=== PATIENT | female | born 1995 | race Caucasian/White ===

== ENCOUNTER 2024-08-10 20:26 | Inpatient (IN) | payer MEDICARE, OTHER ==
[~2024-08-10] VITALS: Ht 149.9 cm; Wt 99.8 kg
[~2024-08-10 20:26] MED LIST: ALBU18HF12 IH; ATOR10TA PO; BUDE10.27 IH; CABE0.5T2 PO; CYAN100096 IM; DIVA-153 PO; FERR-82 PO; FLUT16SP NASAL; HALO5VIA16 IM; LACO50TA16 PO; MONT-35 PO; OMEP20 PO; RISP4TAB31 PO
[2024-08-10 23:01] VITALS: BP 119/80; PULSE 92; RESP 17; TEMP 98.4; O2SAT 96
[2024-08-11 04:58] VITALS: BP 139/83; PULSE 100; RESP 18; TEMP 97.3; O2SAT 97
[2024-08-11 08:29] VITALS: BP 109/71; PULSE 79; RESP 17; TEMP 96.8; O2SAT 98
[2024-08-11] MEDS ORDERED: MAGNESIUM HYDROXIDE SUSPENSION 30 ML UDCUP PO PRN (09:45)
[2024-08-11] MEDS ORDERED: CloNIDine HCL 0.1 MG TABLET PO PRN (09:45)
[2024-08-11] MEDS ORDERED: LOPERAMIDE HCL 2 MG CAPSULE PO PRN (09:45)
[2024-08-11] MEDS ORDERED: PETROLATUM,WHITE 28 GM JELLY TP PRN (09:45)
[2024-08-11] MEDS ORDERED: ONDANSETRON 4 MG TABLET PO PRN (09:45)
[2024-08-11] MEDS ORDERED: DOCUSATE SODIUM 100 MG CAPSULE PO PRN (09:45)
[2024-08-11] MEDS ORDERED: MAG HYDROX/ALUMINUM HYD/SIMETH ES 30 ML SUSPENSION UDCUP PO PRN (09:45)
[2024-08-11] MEDS ORDERED: GuaiFENesin/D-METHORPHAN [SUGAR-FREE] 200-20MG/10 ML SYRUP UDCUP PO PRN (09:45)
[2024-08-11] MEDS ORDERED: NICOTINE 14 MG/24 HOUR PATCH TD PRN (09:45)
[2024-08-11] MEDS ORDERED: ACETAMINOPHEN 325 MG TABLET PO PRN (09:45)
[2024-08-11] MEDS ORDERED: IBUPROFEN 400 MG TABLET PO PRN (09:45)
[2024-08-11] MEDS: RisperiDONE 4 MG TABLET PO SCH (10:52)
[2024-08-11] MEDS: DIVALPROEX SODIUM 500 MG ER TABLET PO SCH (12:16)
[2024-08-11] MEDS: ALBUTEROL SULFATE HFA 90 MCG/PUFF 8 GM INHALER IH PRN (14:02)
[2024-08-11] MEDS: ZOLPIDEM TARTRATE 10 MG TABLET PO PRN (21:01)
[2024-08-11 23:43] VITALS: BP 112/68; PULSE 65; RESP 18; TEMP 97.4; O2SAT 98
[2024-08-12] MEDS: FERROUS SULFATE 325 MG EC TABLET PO SCH (06:22)
[2024-08-12 08:14] VITALS: BP 118/73; PULSE 74; RESP 16; TEMP 96.9; O2SAT 98
[2024-08-12] MEDS: ATORVASTATIN CALCIUM 10 MG TABLET PO SCH (08:21)
[2024-08-12] MEDS: LACOSAMIDE 50 MG TABLET PO SCH (08:21)
[2024-08-12] MEDS: MONTELUKAST SODIUM 10 MG TABLET PO SCH (08:22)
[2024-08-12] MEDS: FLUTICASONE PROPIONATE 50 MCG/SPRAY 16 GM NASAL SPRAY NASAL SCH (08:23)
[2024-08-12 09:02] LABS: HEMOGLOBIN A1C 5.6 % (3.8-5.6)
[2024-08-12 09:19] LABS: THYROID STIMULATING HORMONE 4.31 uIU/mL (0.36-3.74)
[2024-08-12] MEDS: LORazepam 2 MG TABLET PO PRN (15:01)
[2024-08-12] MEDS: HALOPERIDOL 5 MG TABLET PO PRN (15:01)
[2024-08-12 20:49] VITALS: BP 125/82; PULSE 92; RESP 17; TEMP 97.6; O2SAT 98
[2024-08-13 08:15] VITALS: BP 113/72; PULSE 74; RESP 16; TEMP 97.6; O2SAT 98
[2024-08-13 21:26] VITALS: BP 110/70; PULSE 82; RESP 16; TEMP 97.4; O2SAT 97
[2024-08-14 08:42] VITALS: BP 122/81; PULSE 79; RESP 16; TEMP 98.2; O2SAT 96
[2024-08-14] MEDS: INFLUENZA VIRUS VACCINE TVS (6MO+) 2024-25/PF 45 MCG/0.5 ML SYRINGE IM. ONE (15:42)
[2024-08-14] MEDS: PNEUMOCOCCAL VACCINE POLYVALENT 0.5 ML SYRINGE [PPSV23] IM. ONE (16:00)
[2024-08-14 20:12] VITALS: BP 103/60; PULSE 87; RESP 18; TEMP 97.5; O2SAT 97
[2024-08-15 08:14] VITALS: BP 114/60; PULSE 74; RESP 17; TEMP 96.8; O2SAT 96
[2024-08-15 20:14] VITALS: BP 103/60; PULSE 85; RESP 17; TEMP 97.6; O2SAT 95
[2024-08-16 08:35] VITALS: BP 128/79; PULSE 83; RESP 16; TEMP 97.9; O2SAT 96
[2024-08-16 20:36] VITALS: BP 146/59; PULSE 88; RESP 17; TEMP 97.8; O2SAT 98
[2024-08-17 08:13] VITALS: RESP 16
[2024-08-17] MEDS ORDERED: MONT-35 PO (11:01)
[2024-08-17] MEDS ORDERED: LACO50TA16 PO (11:01)
[2024-08-17] MEDS ORDERED: RISP4TAB94 PO (11:01)
[2024-08-17] MEDS ORDERED: FERR325T27 PO (11:01)
[2024-08-17] MEDS ORDERED: ATOR10TA69 PO (11:01)
[2024-08-17] MEDS ORDERED: DIVA-153 PO (11:01)
== END 2024-08-17 12:48 | disposition home or self-care (01) | DRG 885 ==
LOC: B3A 22:07
PROVIDERS: ADMIT Psychiatry & Neurology Psychiatry; ATTEND Psychiatry & Neurology Psychiatry
PROC: GZHZZZZ Group Psychotherapy (ICD-10-PCS; principal; 2024-08-11)
PROC: GZ52ZZZ Individual Psychotherapy, Cognitive (ICD-10-PCS; 2024-08-11)
DX: F25.0 Schizoaffective disorder, bipolar type (principal); J44.89 Other specified chronic obstructive pulmonary disease; F79 Unspecified intellectual disabilities; Z68.41 Body mass index [BMI] 40.0-44.9, adult; K21.9 Gastro-esophageal reflux disease without esophagitis; E78.5 Hyperlipidemia, unspecified; D64.9 Anemia, unspecified; E66.01 Morbid (severe) obesity due to excess calories; G47.30 Sleep apnea, unspecified; Z79.899 Other long term (current) drug therapy; Z81.8 Family history of other mental and behavioral disorders; Z88.1 Allergy status to other antibiotic agents; Z88.2 Allergy status to sulfonamides; Z91.51 Personal history of suicidal behavior
CPT/HCPCS: 80061; 83036; 84443; 90686; 90732; J3535

== ENCOUNTER 2024-08-10 22:07 | Emergency (ER) | payer MEDICARE, OTHER ==
[~2024-08-10] VITALS: Ht 167.6 cm; Wt 80.0 kg
[2024-08-10 22:11] VITALS: TEMP 98
[2024-08-10 23:21] LABS: BASOPHILS % (AUTO) 1.4 % (0.0-2.0); EOSINOPHILS % (AUTO) 0.5 % (1.0-6.0); HEMATOCRIT 35.4 % (36-46); HEMOGLOBIN 11.7 g/dL (12.0-16.0); LYMPHOCYTES % (AUTO) 27.5 % (22.0-44.0); MEAN CORPUSCULAR HEMOGLOBIN 29.5 pg (26.0-34.0); MEAN CORPUSCULAR VOLUME 89 fL (80-100); MONOCYTES # (AUTO) 0.6 K/uL (0.1-1.0); MONOCYTES % (AUTO) 7.8 % (2.0-9.0); NEUTROPHILS # (AUTO) 4.6 K/uL (1.8-7.7); NEUTROPHILS % (AUTO) 62.8 % (40.0-70.0); PLATELET COUNT (AUTO) 132 K/uL (150-450); RED BLOOD CELL COUNT(AUTO) 3.96 MIL/uL (4.00-5.20); RED CELL DISTRIBUTION WIDTH 15.1 % (11.5-14.5); WHITE BLOOD COUNT (AUTO) 7.3 K/uL (4.5-11.0)
[2024-08-10 23:31] LABS: ANION GAP 7 mmol/L (8-16); CALCIUM, TOTAL 8.3 mg/dL (8.8-10.5); CARBON DIOXIDE 30 mmol/L (22-29); CHLORIDE 104 mmol/L (98-107); CREATININE 0.59 mg/dL (0.60-1.30); GLOMERULAR FILTR. RATE CALC > 60 mL/min (>60); GLUCOSE,RANDOM 91 mg/dL (70-110); POTASSIUM 4.1 mmol/L (3.5-5.1); SODIUM SERUM 141 mmol/L (136-145); UREA NITROGEN, BLOOD 9 mg/dL (7-18)
[2024-08-10 23:42] LABS: ALCOHOL, BLOOD (SERUM) < 3 mg/dL (0-10)
[2024-08-10 23:48] LABS: COVID AG,FIA SOURCE NASAL SWAB
[2024-08-11 00:04] LABS: SARS-COV2 (COVID) ANTIGEN,FIA Negative (Negative)
[2024-08-11 02:48] VITALS: BP 130/86; PULSE 82; RESP 18; O2SAT 98
== END 2024-08-11 02:50 ==
LOC: EMS 22:07
DX: F20.9 Schizophrenia, unspecified (principal); F31.9 Bipolar disorder, unspecified; G47.30 Sleep apnea, unspecified; Z00.8 Encounter for other general examination; Z79.51 Long term (current) use of inhaled steroids; Z79.899 Other long term (current) drug therapy; Z88.1 Allergy status to other antibiotic agents; Z88.2 Allergy status to sulfonamides; Z20.822 Contact with and (suspected) exposure to COVID-19
CPT/HCPCS: 99285; 87426; 80048; 84703; 85025; 36415; G0480